=== PATIENT | male | born 1975 | race Caucasian/White ===

== ENCOUNTER 2016-07-09 23:15 | Emergency (ER) | payer OTHER ==
[2016-07-09] MEDS ORDERED: ASPIRIN 81 MG CHEW PO STA (23:28)
[2016-07-09] MEDS ORDERED: NITROGLYCERIN OINT 1 INCH/GM PACKET TOPICAL STA (23:28)
--- NOTE | 2016-07-09 23:30 | ED ---
General Adult HPI - General Chief complaint: Chest Pain Stated complaint: CHEST PAIN Time Seen by Provider: 07/09/16 23:18 Source: patient, RN notes reviewed Mode of arrival: EMS Limitations: no limitations - History of Present Illness Initial comments: Patient is a pleasant 40-year-old male presenting to the emergency department complaining of chest discomfort. Onset of symptoms was just prior to arrival while doing light exertion at work. Patient is sharp discomfort left chest. Mild associated dyspnea. No nausea or diaphoresis. Patient has had similar symptoms previously with negative cardiac evaluation. Patient sometimes does not take his medications. No history of cardiac disease however patient has hypertension, COPD from smoking, and hypercholesterolemia. No leg pain or swelling. No fevers. No radiation of pain. This time patient is near symptom- free. - Related Data Home Medications Medication Instructions Recorded Confirmed HYDROcodone/APAP 5-325MG [[place] 1 tab PO QID PRN 12/15/15 07/09/16 5-325] ALPRAZolam [Xanax] 0.25 mg PO BID PRN 07/09/16 07/09/16 ARIPiprazole [Abilify Maintena] 400 mg IM Q28D 07/09/16 07/09/16 ARIPiprazole [Abilify] 5 mg PO DAILY 07/09/16 07/09/16 Albuterol Inhaler [Ventolin Hfa 2 puff INHALATION RT-Q6H PRN 07/09/16 07/09/16 Inhaler] Atorvastatin [Lipitor] 20 mg PO HS 07/09/16 07/09/16 Beclomethasone Dipropionate [Qvar 1 puff INHALATION RT-BID 07/09/16 07/09/16 80 mcg] Escitalopram [Lexapro] 20 mg PO DAILY 07/09/16 07/09/16 Gabapentin 800 mg PO TID 07/09/16 07/09/16 OXcarbazepine [Trileptal] 300 mg PO BID 07/09/16 07/09/16 Propranolol [Inderal] 20 mg PO TID 07/09/16 07/09/16 Allergies Allergy/AdvReac Type Severity Reaction Status Date / Time venom-honey bee Allergy Swelling Verified 07/09/16 23:42 [bee venom (honey bee)] metals Allergy Rash/Hives Uncoded 07/09/16 23:21 Review of Systems ROS Statement: Those systems with pertinent positive or pertinent negative responses have been documented in the HPI. ROS Other: All systems not noted in ROS Statement are negative. Constitutional: Denies: fever Eyes: Denies: eye pain ENT: Denies: ear pain Respiratory: Reports: dyspnea. Denies: cough Cardiovascular: Reports: chest pain Endocrine: Denies: fatigue Gastrointestinal: Denies: abdominal pain Genitourinary: Denies: dysuria Musculoskeletal: Denies: back pain Skin: Denies: rash Neurological: Denies: weakness Past Medical History Past Medical History: Asthma, COPD, Hyperlipidemia, Hypertension, Skin Disorder Additional Past Medical History / Comment(s): Chronic low back pain, chronns chronic knee pain History of Any Multi-Drug Resistant Organisms: None Reported Past Surgical History: Orthopedic Surgery Additional Past Surgical History / Comment(s): Repair of the right knee ACL, left foot sx due to injury, right hand sx due to injury. Past Anesthesia/Blood Transfusion Reactions: No Reported Reaction Past Psychological History: Anxiety, Bipolar, Depression, Schizophrenia Additional Psychological History / Comment(s): Pt lives with a couple of friends. He uses a cane to ambulate due to his R knee and back pain. He states he thinks he may have ran out of one of his psych meds recently. He has had increased depression over the past couple weeks. He was admitted with over dose of acetaminophen pm. 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 He gets to appts either with friends driving or his insurance company. Smoking Status: Current every day smoker Past Alcohol Use History: Rare Additional Past Alcohol Use History / Comment(s): He started smoking at age 15. He has past hx of using heroin, cocaine and marijuana but has not used any drugs in [address] Kilgore for his mental health illnesses. Past Drug Use History: None Reported Additional Drug Use History / Comment(s): Patient states that he has used heroin , cocaine and marijuana in the past-none in 10 yrs. - Past Family History Mother Family Medical History: Asthma, Hypertension Additional Family Medical History / Comment(s): Mental health issues per pt. Father Family Medical History: CVA/TIA, Hypertension, Myocardial Infarction ([place]) Additional Family Medical History / Comment(s): Mental Health issues per patient. DDD General Exam Limitations: no limitations General appearance: alert, in no apparent distress Head exam: Present: atraumatic Eye exam: Present: normal appearance, PERRL ENT exam: Present: normal oropharynx Neck exam: Present: normal inspection Respiratory exam: Present: normal lung sounds bilaterally. Absent: chest wall tenderness Cardiovascular Exam: Present: regular rate, normal rhythm Expanded Peripheral pulses: 2+: Radial (R), Radial (L), Posterior Tibialis (R), Posterior Tibialis (L) GI/Abdominal exam: Present: soft. Absent: tenderness Extremities exam: Present: normal inspection. Absent: pedal edema, calf tenderness Back exam: Present: normal inspection Neurological exam: Present: alert Psychiatric exam: Present: normal affect, normal mood Skin exam: Absent: rash Course Vital Signs 07/09/16 07/09/16 07/09/16 23:19 23:27 23:41 Temperature 98.2 F Pulse Rate 72 74 Pulse Rate [ 75 Lpn Private Duty ] Respiratory 18 18 18 Rate Blood Pressure 131/66 105/57 O2 Sat by Pulse 99 Oximetry 07/10/16 00:20 Temperature Pulse Rate 68 Pulse Rate [ Lpn Private Duty ] Respiratory 18 Rate Blood Pressure 92/55 O2 Sat by Pulse 100 Oximetry EKG Findings - EKG Comments: EKG Findings:: Normal sinus rhythm 73. Normal intervals. Normal axis. Normal QRS. Normal ST-T. Medical Decision Making - Medical Decision Making Patient reexamined and symptom-free. Patient is advised admission for further evaluation and repeat lab tests. Patient is made aware that heart attack has not been completely ruled out. Patient is also made aware that he could be at risk for heart attack in the near future or other problems. Patient does demonstrate medical decision making. Patient refuses to stay and will leave AGAINST MEDICAL ADVICE. Patient is agreeable to follow-up with his primary care physician. He states he has an appointment on the for will try to follow-up sooner. - Lab Data Result diagrams: 07/09/16 23:25 07/09/16 23:25 Lab Results 07/09/16 07/09/16 07/09/16 Range/Units 23:25 23:25 23:25 WBC 6.9 (3.8-10.6) k/uL RBC 4.76 (4.30-5.90) m/uL Hgb 14.3 (13.0-17.5) gm/dL Hct 42.2 (39.0-53.0) % MCV 88.7 (80.0-100.0) fL MCH 30.0 (25.0-35.0) pg MCHC 33.9 (31.0-37.0) g/dL RDW 12.8 (11.5-15.5) % Plt Count 189 (150-450) k/uL Neutrophils % 49 % Lymphocytes % 39 % Monocytes % 4 % Eosinophils % 6 % Basophils % 1 % Neutrophils # 3.4 (1.3-7.7) k/uL Lymphocytes # 2.7 (1.0-4.8) k/uL Monocytes # 0.3 (0-1.0) k/uL Eosinophils # 0.4 (0-0.7) k/uL Basophils # 0.1 (0-0.2) k/uL PT (9.0-12.0) sec INR (<1.1) APTT (22.0-30.0) sec D-Dimer (<0.60) mg/L FEU Sodium 142 (137-145) mmol/L Potassium 3.7 (3.5-5.1) mmol/L Chloride 107 (98-107) mmol/L Carbon Dioxide 25 (22-30) mmol/L Anion Gap 10 mmol/L BUN 11 (9-20) mg/dL Creatinine 1.00 (0.66-1.25) mg/dL Est GFR (MDRD) Af Amer >60 (>60 ml/min/1.73 sqM) Est GFR (MDRD) Non-Af >60 (>60 ml/min/1.73 sqM) Glucose 79 (74-99) mg/dL Calcium 8.7 (8.4-10.2) mg/dL Magnesium 2.1 (1.6-2.3) mg/dL Total Bilirubin 0.3 (0.2-1.3) mg/dL AST 27 (17-59) U/L ALT 35 (21-72) U/L Alkaline Phosphatase 55 (38-126) U/L Total Creatine Kinase 103 (55-170) U/L CK-MB (CK-2) 0.6 (0.0-2.4) ng/mL CK-MB (CK-2) Rel Index 0.6 Troponin I <0.012 (0.000-0.034) ng/mL Total Protein 6.6 (6.3-8.2) g/dL Albumin 4.2 (3.5-5.0) g/dL 07/09/16 Range/Units 23:25 WBC (3.8-10.6) k/uL RBC (4.30-5.90) m/uL Hgb (13.0-17.5) gm/dL Hct (39.0-53.0) % MCV (80.0-100.0) fL MCH (25.0-35.0) pg MCHC (31.0-37.0) g/dL RDW (11.5-15.5) % Plt Count (150-450) k/uL Neutrophils % % Lymphocytes % % Monocytes % % Eosinophils % % Basophils % % Neutrophils # (1.3-7.7) k/uL Lymphocytes # (1.0-4.8) k/uL Monocytes # (0-1.0) k/uL Eosinophils # (0-0.7) k/uL Basophils # (0-0.2) k/uL PT 10.9 (9.0-12.0) sec INR 1.1 (<1.1) APTT 27.5 (22.0-30.0) sec D-Dimer 0.19 (<0.60) mg/L FEU Sodium (137-145) mmol/L Potassium (3.5-5.1) mmol/L Chloride (98-107) mmol/L Carbon Dioxide (22-30) mmol/L Anion Gap mmol/L BUN (9-20) mg/dL Creatinine (0.66-1.25) mg/dL Est GFR (MDRD) Af Amer (>60 ml/min/1.73 sqM) Est GFR (MDRD) Non-Af (>60 ml/min/1.73 sqM) Glucose (74-99) mg/dL Calcium (8.4-10.2) mg/dL Magnesium (1.6-2.3) mg/dL Total Bilirubin (0.2-1.3) mg/dL AST (17-59) U/L ALT (21-72) U/L Alkaline Phosphatase (38-126) U/L Total Creatine Kinase (55-170) U/L CK-MB (CK-2) (0.0-2.4) ng/mL CK-MB (CK-2) Rel Index Troponin I (0.000-0.034) ng/mL Total Protein (6.3-8.2) g/dL Albumin (3.5-5.0) g/dL - Radiology Data Radiology results: image reviewed (Chest x-ray shows no acute process) Disposition Clinical Impression: Chest pain Disposition: HOME SELF-CARE Condition: Stable Instructions: Chest Pain (ED) Additional Instructions: Please follow-up with your doctor in the next day or 2 for recheck. Aspirin daily. Return for increased pain, difficulty breathing, sweating or vomiting, worsening symptoms or any other concerns. You are leaving AGAINST MEDICAL ADVICE. Referrals: Nonstaff,Physician [Primary Care Provider] - 1-2 days Boaz Tavares MD [STAFF PHYSICIAN] - 1-2 days
[2016-07-09 23:39] LABS: Basophils # (A) 0.1 k/uL (0-0.2); Basophils % (A) 1 %; CH 30.8; CHCM 34.9; Eosinophils # (A) 0.4 k/uL (0-0.7); Eosinophils % (A) 6 %; HCT 42.2 % (39.0-53.0); HDW 2.64; HGB 14.3 gm/dL (13.0-17.5); Luc # (Auto) 0.09; Luc % (Auto) 1; Lymphocytes # (A) 2.7 k/uL (1.0-4.8); Lymphocytes % (A) 39 %; MCHC 33.9 g/dL (31.0-37.0); MCV 88.7 fL (80.0-100.0); Mean Platelet Volume 7.9; Monocytes # (A) 0.3 k/uL (0-1.0); Monocytes % (A) 4 %; Neutrophils # (A) 3.4 k/uL (1.3-7.7); Neutrophils % (A) 49 %; RBC 4.76 m/uL (4.30-5.90); RDW 12.8 % (11.5-15.5); WBC 6.9 k/uL (3.8-10.6); WBC (Perox) 7.29
[2016-07-09 23:48] LABS: ALT 35 U/L (21-72); AST 27 U/L (17-59); Alkaline Phosphatase 55 U/L (38-126); Anion Gap 10 mmol/L; Blood Urea Nitrogen 11 mg/dL (9-20); Calcium 8.7 mg/dL (8.4-10.2); Carbon Dioxide 25 mmol/L (22-30); Chloride 107 mmol/L (98-107); Glucose 79 mg/dL (74-99); Magnesium 2.1 mg/dL (1.6-2.3); Non-African American GFR(MDRD) >60 (>60 ml/min/1.73 sqM); Potassium 3.7 mmol/L (3.5-5.1); Sodium 142 mmol/L (137-145); Total Bilirubin 0.3 mg/dL (0.2-1.3); Total Protein 6.6 g/dL (6.3-8.2)
--- NOTE | 2016-07-09 23:54 | XR ---
EXAMINATION TYPE: XR chest 2V DATE OF EXAM: 07/09/2016 11:50 PM COMPARISON: 05/12/2016 HISTORY: Chest pain TECHNIQUE: Frontal and lateral views of the chest are obtained. FINDINGS: Heart and mediastinum are normal. Lungs are clear. Diaphragm is normal. Bony thorax is nor mal. There are chest leads. IMPRESSION: Normal chest. No change.
[2016-07-10 00:14] LABS: Creatine Kinase 103 U/L (55-170)
[2016-07-10 00:27] LABS: Creatine Kinase MB 0.6 ng/mL (0.0-2.4); Troponin I <0.012 ng/mL (0.000-0.034)
[2016-07-10 00:29] LABS: Partial Thromboplastin Time 27.5 sec (22.0-30.0); Prothrombin Time 10.9 sec (9.0-12.0)
[2016-07-10 00:30] LABS: INR 1.1 (<1.1)
[2016-07-10 00:49] VITALS: BP 101/60; PULSE 76; RESP 16; TEMP 98
== END 2016-07-10 00:49 | disposition home or self-care (01) ==
LOC: EC 23:15
DX: R07.9 Chest pain, unspecified (principal); J44.9 Chronic obstructive pulmonary disease, unspecified; Z53.21 Procedure and treatment not carried out due to patient leaving prior to being seen by health care provider; I10 Essential (primary) hypertension; E78.00 Pure hypercholesterolemia, unspecified; Z79.899 Other long term (current) drug therapy; J45.909 Unspecified asthma, uncomplicated; F41.9 Anxiety disorder, unspecified; F32.9 Major depressive disorder, single episode, unspecified; F31.9 Bipolar disorder, unspecified; F20.9 Schizophrenia, unspecified; M54.5 Low back pain; G89.29 Other chronic pain; F17.200 Nicotine dependence, unspecified, uncomplicated; Z79.51 Long term (current) use of inhaled steroids
CPT/HCPCS: 36415; 71020; 80053; 82550; 82553; 83735; 84484; 85025; 85379; 85610; 85730; 93005; 99285

== ENCOUNTER 2016-10-21 19:16 | Emergency (ER) | payer OTHER ==
[2016-10-21 19:25] VITALS: RESP 16; TEMP 99
--- NOTE | 2016-10-21 20:03 | ED ---
Chest Pain HPI - General Chief Complaint: Chest Pain Stated Complaint: chest pain Time Seen by Provider: 10/21/16 19:19 Source: patient, EMS Mode of arrival: EMS - History of Present Illness Initial Comments: This is a 41-year-old male who presents emergency department for intermittent chest pain for the last couple of days. He's describes it as a tightness in his chest. It seems to be random and not related to exertion. He does have associated lightheadedness however no diaphoresis or nausea or vomiting. He does admit to some associated shortness of breath. No radiation of the pain. No cough or fever. No abdominal pain. He does smoke and takes medication for blood pressure and high cholesterol. He's had these symptoms previously approximate 6 months ago and had a full workup and including cardiac MRI and stress testing. This was completely unremarkable. He does state these been under a little bit more stress recently however is unsure if that is causing his symptoms. He does not have any chest discomfort currently. No other complaints. - Related Data Home Medications Medication Instructions Recorded Confirmed HYDROcodone/APAP 5-325MG [[place] 1 tab PO QID PRN 12/15/15 10/21/16 5-325] Albuterol Inhaler [Ventolin Hfa 2 puff INHALATION RT-Q6H PRN 07/09/16 10/21/16 Inhaler] Atorvastatin [Lipitor] 20 mg PO HS 07/09/16 10/21/16 Gabapentin 800 mg PO TID 07/09/16 10/21/16 Propranolol [Inderal] 20 mg PO TID 07/09/16 10/21/16 Allergies Allergy/AdvReac Type Severity Reaction Status Date / Time venom-honey bee Allergy Swelling Verified 10/21/16 19:55 [bee venom (honey bee)] metals Allergy Rash/Hives Uncoded 07/09/16 23:21 Review of Systems ROS Statement: Those systems with pertinent positive or pertinent negative responses have been documented in the HPI. ROS Other: All systems not noted in ROS Statement are negative. EKG Findings - EKG Comments: EKG Findings:: EKG showing a sinus rhythm with rate of 79. No abnormal ST segment changes or T-wave inversions. QTC is 418. Other intervals are normal. No ectopy. Past Medical History Past Medical History: Asthma, COPD, Hyperlipidemia, Hypertension, Skin Disorder Additional Past Medical History / Comment(s): Chronic low back pain, chronns chronic knee pain History of Any Multi-Drug Resistant Organisms: None Reported Past Surgical History: Orthopedic Surgery Additional Past Surgical History / Comment(s): Repair of the right knee ACL, left foot sx due to injury, right hand sx due to injury. Past Anesthesia/Blood Transfusion Reactions: No Reported Reaction Past Psychological History: Anxiety, Bipolar, Depression, Schizophrenia Additional Psychological History / Comment(s): Pt lives with a couple of friends. He uses a cane to ambulate due to his R knee and back pain. He states he thinks he may have ran out of one of his psych meds recently. He has had increased depression over the past couple weeks. He was admitted with over dose of acetaminophen pm. 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 He gets to appts either with friends driving or his insurance company. Smoking Status: Current every day smoker Past Alcohol Use History: Rare Additional Past Alcohol Use History / Comment(s): He started smoking at age 15. He has past hx of using heroin, cocaine and marijuana but has not used any drugs in [address] Kilgore for his mental health illnesses. Past Drug Use History: None Reported Additional Drug Use History / Comment(s): Patient states that he has used heroin , cocaine and marijuana in the past-none in 10 yrs. - Past Family History Mother Family Medical History: Asthma, Hypertension Additional Family Medical History / Comment(s): Mental health issues per pt. Father Family Medical History: CVA/TIA, Hypertension, Myocardial Infarction ([place]) Additional Family Medical History / Comment(s): Mental Health issues per patient. DDD General Exam - General Exam Comments Initial Comments: Constitutional: Awake alert Appears comfortable Head: Normocephalic atraumatic Eyes: no conjunctival injection No scleral icterus EOMI Neck: No JVD Supple Heart: Regular rate rhythm normal S1-S2 no murmurs Lungs: Clear to auscultation bilaterally No wheezing No rales Abdomen: Soft nondistended nontender Extremities: Non edematous DP pulses intact Radial pulses intact Neuro: A&Ox3 No focal neurologic deficits Psych: Appropriate mood and affect Course Vital Signs 10/21/16 10/21/16 10/21/16 19:22 21:03 21:29 Temperature 99 F Pulse Rate 71 64 72 Respiratory 16 16 16 Rate Blood Pressure 139/73 126/69 125/65 O2 Sat by Pulse 98 98 98 Oximetry Chest Pain MDM - MDM This is a 41-year-old male came in for chest pain that was atypical in nature. The patient had no chest pain while in the emergency department. EKG was unremarkable and troponin was negative. Patient has had significant GI and anxiety issues in the past. I feel that this is more likely than ACS. He's had a completely normal workup within the last 6 months. I told to follow-up with his primary doctor. He may need GI evaluation. Told to deal with stress at home with his normal troponin mechanisms. He can return if he has worsening symptoms. All questions were answered. Disposition Clinical Impression: Chest pain Disposition: HOME SELF-CARE Condition: Stable Instructions: Chest Pain (ED) Referrals: Nonstaff,Physician [Primary Care Provider] - 1-2 days
[2016-10-21 20:05] LABS: Basophils # (A) 0.1 k/uL (0-0.2); Basophils % (A) 1 %; CHCM 34.7; Eosinophils # (A) 0.2 k/uL (0-0.7); Eosinophils % (A) 2 %; HCT 43.4 % (39.0-53.0); HDW 2.53; HGB 14.7 gm/dL (13.0-17.5); Luc # (Auto) 0.15; Luc % (Auto) 2; Lymphocytes # (A) 2.2 k/uL (1.0-4.8); Lymphocytes % (A) 23 %; MCH 30.5 pg (25.0-35.0); MCV 89.8 fL (80.0-100.0); Mean Platelet Volume 7.4; Monocytes # (A) 0.5 k/uL (0-1.0); Monocytes % (A) 5 %; Neutrophils # (A) 6.5 k/uL (1.3-7.7); Neutrophils % (A) 68 %; RBC 4.83 m/uL (4.30-5.90); RDW 12.8 % (11.5-15.5); WBC 9.6 k/uL (3.8-10.6); WBC (Perox) 9.33
[2016-10-21 20:13] LABS: INR 1.1 (<1.1); Partial Thromboplastin Time 25.4 sec (22.0-30.0); Prothrombin Time 10.7 sec (9.0-12.0)
[2016-10-21 20:25] LABS: ALT 22 U/L (21-72); AST 20 U/L (17-59); Alkaline Phosphatase 52 U/L (38-126); Anion Gap 7 mmol/L; Blood Urea Nitrogen 6 mg/dL (9-20); Calcium 8.8 mg/dL (8.4-10.2); Carbon Dioxide 26 mmol/L (22-30); Chloride 109 mmol/L (98-107); Glucose 87 mg/dL (74-99); Magnesium 1.9 mg/dL (1.6-2.3); Non-African American GFR(MDRD) >60 (>60 ml/min/1.73 sqM); Potassium 3.8 mmol/L (3.5-5.1); Sodium 142 mmol/L (137-145); Total Bilirubin 0.4 mg/dL (0.2-1.3); Total Protein 6.2 g/dL (6.3-8.2)
[2016-10-21 20:37] LABS: Creatine Kinase MB 0.6 ng/mL (0.0-2.4); Troponin I <0.012 ng/mL (0.000-0.034)
--- NOTE | 2016-10-21 21:03 | XR ---
EXAMINATION TYPE: XR chest 2V DATE OF EXAM: 10/21/2016 8:15 PM COMPARISON: 07/09/2016 INDICATION: Pain TECHNIQUE: Single frontal view of the chest is obtained. FINDINGS: The heart size is normal. The pulmonary vasculature is normal. The lungs are clear. EKG leads overlie the chest. IMPRESSION: 1. No acute pulmonary process.
[2016-10-21 21:30] VITALS: BP 125/65; PULSE 72
== END 2016-10-21 21:30 | disposition home or self-care (01) ==
LOC: EC 19:16
DX: R07.89 Other chest pain (principal); R42 Dizziness and giddiness; R06.02 Shortness of breath; I10 Essential (primary) hypertension; E78.5 Hyperlipidemia, unspecified; F17.200 Nicotine dependence, unspecified, uncomplicated; Z79.899 Other long term (current) drug therapy; Z91.030 Bee allergy status; Z91.048 Other nonmedicinal substance allergy status; Z82.49 Family history of ischemic heart disease and other diseases of the circulatory system
CPT/HCPCS: 36415; 71020; 80053; 82553; 83690; 83735; 84484; 85025; 85610; 85730; 93005; 99285

== ENCOUNTER 2017-02-22 07:40 | Inpatient (IN) | payer OTHER ==
--- NOTE | 2017-02-22 08:52 | ED ---
General Adult HPI - General Chief complaint: Psychiatric Symptoms Stated complaint: Mental Health Time Seen by Provider: 02/22/17 08:16 Source: EMS, RN notes reviewed Mode of arrival: EMS Limitations: no limitations - History of Present Illness Initial comments: Patient 41-year-old male who presents emergency room today with a chief complaint of possible suicidal or homicidal ideation. He states she's having thoughts of hurting himself. He states is given thoughts to overdosing on his medications. She is not been taking his medication over the last 2 months up and seen a therapist or counselor. Patient also admits that he's had thoughts of hurting others but no one specifically. Patient denies any other physical complaints. Patient denies any recent fever, chills, shortness of breath, chest pain, back pain, abdominal pain, nausea or vomiting, numbness or tingling, dysuria or hematuria, constipation or diarrhea, headaches or visual changes, or any other complaints. - Related Data Home Medications Medication Instructions Recorded Confirmed HYDROcodone/APAP 5-325MG [[place] 1 tab PO QID PRN 12/15/15 02/22/17 5-325] Albuterol Inhaler [Ventolin Hfa 2 puff INHALATION RT-Q6H PRN 07/09/16 02/22/17 Inhaler] Atorvastatin [Lipitor] 20 mg PO HS 07/09/16 02/22/17 Gabapentin 800 mg PO TID 07/09/16 02/22/17 Propranolol [Inderal] 20 mg PO TID 07/09/16 02/22/17 Allergies Allergy/AdvReac Type Severity Reaction Status Date / Time venom-honey bee Allergy Swelling Verified 02/22/17 09:34 [bee venom (honey bee)] metals Allergy Rash/Hives Uncoded 02/22/17 07:45 Review of Systems ROS Statement: Those systems with pertinent positive or pertinent negative responses have been documented in the HPI. ROS Other: All systems not noted in ROS Statement are negative. Past Medical History Past Medical History: Asthma, COPD, Hyperlipidemia, Hypertension, Skin Disorder Additional Past Medical History / Comment(s): Chronic low back pain, chronns chronic knee pain History of Any Multi-Drug Resistant Organisms: None Reported Past Surgical History: Orthopedic Surgery Additional Past Surgical History / Comment(s): Repair of the right knee ACL, left foot sx due to injury, right hand sx due to injury. Past Anesthesia/Blood Transfusion Reactions: No Reported Reaction Past Psychological History: Anxiety, Bipolar, Depression, Schizophrenia Smoking Status: Current every day smoker Past Alcohol Use History: Rare Past Drug Use History: None Reported - Past Family History Mother Family Medical History: Asthma, Hypertension Additional Family Medical History / Comment(s): Mental health issues per pt. Father Family Medical History: CVA/TIA, Hypertension, Myocardial Infarction ([place]) Additional Family Medical History / Comment(s): Mental Health issues per patient. DDD General Exam - General Exam Comments Initial Comments: General: The patient is awake and alert, in no distress, and does not appear acutely ill. Eye: Pupils are equal, round and reactive to light, extra-ocular movements are intact. No nystagmus. There is normal conjunctiva bilaterally. No signs of icterus. Ears, nose, mouth and throat: There are moist mucous membranes and no oral lesions. Neck: The neck is supple, there is no tenderness or JVD. Cardiovascular: There is a regular rate and rhythm. No murmur, rub or gallop is appreciated. Respiratory: Lungs are clear to auscultation, respirations are non-labored, breath sounds are equal. No wheezes, stridor, rales, or rhonchi. Musculoskeletal: Normal ROM, no tenderness. Strength 5/5. Sensation intact. Pulses equal bilaterally 2+. Neurological: A&O x 3. CN II-XII intact, There are no obvious motor or sensory deficits. Coordination appears grossly intact. Speech is normal. Skin: Skin is warm and dry and no rashes or lesions are noted. Psychiatric: Cooperative, appropriate mood & affect, normal judgment. Limitations: no limitations Course Vital Signs 02/22/17 07:45 Temperature 98.6 F Pulse Rate 69 Respiratory 20 Rate Blood Pressure 131/69 O2 Sat by Pulse 99 Oximetry Medical Decision Making - Medical Decision Making Patient has been seen here in emergency room by psych services and recommended admission. Patient is willing to sign himself in. Disposition Clinical Impression: Suicidal ideation Disposition: TRANSFER TO PSYCH HOSP/UNIT Condition: Stable Referrals: None,Stated [Primary Care Provider] - 1-2 days Time of Disposition: 10:38
[2017-02-22] MEDS ORDERED: LORazepam 1 MG TAB PO PRN (10:51)
[2017-02-22] MEDS ORDERED: ZIPRASIDONE 20 MG VIAL IM PRN (10:51)
[2017-02-22] MEDS ORDERED: ACETAMINOPHEN TAB 325 MG TAB PO PRN (10:51)
[2017-02-22] MEDS ORDERED: MAG HYDROX/AL HYDROX/SIMETH 30 ML CUP PO PRN (10:51)
[2017-02-22] MEDS ORDERED: MAGNESIUM HYDROXIDE 2,400 MG/10 ML CUP PO PRN (10:51)
[2017-02-22] MEDS ORDERED: NICOTINE 7MG/24HR PATCH TRANSDERM SCH (11:00)
[2017-02-22] MEDS: NICOTINE 14MG/24HR PATCH TRANSDERM SCH (11:49)
[2017-02-22 11:51] VITALS: BMI 28.3
--- NOTE | 2017-02-22 19:31 | P.MDCNMH ---
History of Present Illness H&P Date: 02/22/17 Chief Complaint: Suicidal ideation 41-year-old male with past medical history of hypertension and hyperlipidemia currently not on any medication at does not have insurance all [facility] established outpatient follow-up Patient presented due to suicidal ideation with plans on overdosing he's been having thoughts of hurting himself and homicidal ideation with no specific targets he reported that he was discussed like to hurt people. Otherwise he denies any chest pain trouble breathing headache changes in his vision or hearing denies any abdominal pain nausea or vomiting diarrhea or bleeding. Review of Systems Constitutional: Patient reports no fever, no chills, no night sweating, no significant weight changes Eyes: Patient reports no visual changes, no eye pain ENT: Patient reports no ear pain, no rhinorrhea, no sore throat Cardiovascular: Patient reports no chest pain, no exertional dyspnea, no peripheral leg edema, no orthopnea, no paroxysmal nocturnal dyspnea Respiratory:Patient reports no cough, no wheezing, no shortness of breath Gastrointestinal: Patient reports no diarrhea, no constipation, no nausea no vomiting, no abdominal pain Genitourinary: Patient reports no dysuria, no hematuria, no changes in urinary habits, no genital lesions Musculoskeletal: Patient reports no muscle pain, no joint pain Psychiatric: Patient reports suicidal ideation, depressed mood and helpless, anxiety Endocrine: Patient reports no heat intolerance, no cold intolerance, no excessive thirst, no polyuria Neurological: Patient reports no focal neurologic deficits, no weakness, no numbness, no tingling Hem/Lymphatic: Patient reports no bleeding tendency, no bruising, no swollen lymph glands Allergic/Immun: Patient reports no recent allergic reactions Skin: Patient reports no rashes, no pruritis, no ulcers Past Medical History Past Medical History: Asthma, COPD, Hyperlipidemia, Hypertension, Skin Disorder Additional Past Medical History / Comment(s): Chronic low back pain, chronns chronic knee pain History of Any Multi-Drug Resistant Organisms: None Reported Past Surgical History: Orthopedic Surgery Additional Past Surgical History / Comment(s): Repair of the right knee ACL, left foot sx due to injury, right hand sx due to injury. Past Anesthesia/Blood Transfusion Reactions: No Reported Reaction Past Psychological History: Anxiety, Bipolar, Depression, Schizophrenia Additional Psychological History / Comment(s): Pt lives with a couple of friends. He uses a cane to ambulate due to his R knee and back pain. He states he thinks he may have ran out of one of his psych meds recently. He has had increased depression over the past couple weeks. He was admitted with over dose of acetaminophen pm. 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 He gets to appts either with friends driving or his insurance company. Smoking Status: Current every day smoker Past Alcohol Use History: Rare Additional Past Alcohol Use History / Comment(s): He started smoking at age 15. He has past hx of using heroin, cocaine and marijuana but has not used any drugs in [address] Kilgore for his mental health illnesses. Past Drug Use History: None Reported Additional Drug Use History / Comment(s): Patient states that he has used heroin , cocaine and marijuana in the past-none in 10 yrs. - Past Family History Mother Family Medical History: Asthma, Hypertension Additional Family Medical History / Comment(s): Mental health issues per pt. Father Family Medical History: CVA/TIA, Hypertension, Myocardial Infarction ([place]) Additional Family Medical History / Comment(s): Mental Health issues per patient. DDD Medications and Allergies Home Medications and Allergies Comment(s): Reviewed patient reports taking no medications at home as he doesn't have insurance Home Medications Medication Instructions Recorded Confirmed Type HYDROcodone/APAP 5-325MG [[place] 1 tab PO QID PRN 12/15/15 02/22/17 History 5-325] Albuterol Inhaler [Ventolin Hfa 2 puff INHALATION RT-Q6H PRN 07/09/16 02/22/17 History Inhaler] Atorvastatin [Lipitor] 20 mg PO HS 07/09/16 02/22/17 History Gabapentin 800 mg PO TID 07/09/16 02/22/17 History Propranolol [Inderal] 20 mg PO TID 07/09/16 02/22/17 History Allergies Allergy/AdvReac Type Severity Reaction Status Date / Time venom-honey bee Allergy Swelling Verified 02/22/17 09:34 [bee venom (honey bee)] metals Allergy Rash/Hives Uncoded 02/22/17 07:45 Physical Exam Vitals: Vital Signs Temp Pulse Pulse Resp BP BP Pulse Ox 02/22/17 11:39 97.8 F 63 16 113/80 02/22/17 07:45 98.6 F 69 20 131/69 99 Intake and Output 08/28/17 08/28/17 08/28/17 06:59 14:59 22:59 Other: Weight 97.4 kg Patient Weight 02/23/17 06:59 Weight 97.4 kg Constitutional: No acute distress, conversant Eyes: Anicteric sclerae, moist conjunctiva, no lid-lag Pupils equal round reactive to light ENMT: NC/AT Oropharynx clear, no erythema, exudates Neck: Supple, FROM, no masses, or JVD No carotid bruits No thyromegaly Lungs: Clear to auscultation Clear to percussion Normal respiratory effort, no accessory muscle use Cardiovascular: Heart regular in rate and rhythm, No murmurs, gallops, or rubs No peripheral edema Abdominal: Soft Nontender, no guarding, rebound or rigidity Abdomen moving with respiration Normoactive bowel sounds No hepatomegaly, No splenomegaly No palpable mass No abdominal wall hernia noted Skin: Normal temperature, tone, texture, turgor No induration No subcutaneous nodules No rash, lesions No ulcers Extremities: No digital cyanosis No clubbing Pedal pulses intact and symmetrical Radial pulses intact and symmetrical No calf tenderness Psychiatric: Alert and oriented to person, place and time Depressed affect Poor judgement Neuro Muscles Strength 5/5 in all 4 extremities Sensation to light touch grossly present throughout Cranial nerves II-XII grossly intact No focal sensory deficits Lymphatics: no palpable cervical or supraclavicular , or inguinal lymph nodes Cranial Nerve Examination - Cranial Nerves Cranial Nerve II- Optic: Intact Cranial Nerve III- Oculomotor: Intact Cranial Nerve IV- Trochlear: Intact Cranial Nerve V- Trigeminal: Intact Cranial Nerve - Abducens: Intact Cranial Nerve VII- Facial: Intact Cranial Nerve VIII- Auditory: Intact Cranial Nerve IX- Glossopharyngeal: Intact Cranial Nerve X- Vagus: Intact Cranial Nerve XI- Accessory: Intact Cranial Nerve XII- Hypoglossal: Intact Assessment and Plan (1) COPD (chronic obstructive pulmonary disease) Narrative/Plan: Currently stable Continue with DuoNeb's when necessary Patient counseled to quit smoking and avoid smoke exposure Status: Chronic (2) Suicidal ideation Narrative/Plan: Management per psych suicide precautions Status: Acute (3) Agitation Status: Acute (4) Ne (monopolar) single episode or unspecified Status: Acute Plan: Tobacco smoking Patient counseled to quit smoking, dictating replacement therapy offered history of hypertension , patient off medications, currently blood pressure controlled will continue to monitor Thank you for allowing me the opportunity of participating in the care the care of this patient we will follow-up as needed please don't hesitate to call Time with Patient: Greater than 30
[2017-02-22] MEDS ORDERED: IPRATROPIUM-ALBUTEROL 3 ML NEB INHALATION PRN (19:43)
[2017-02-23] MEDS: NICOTINE 14MG/24HR PATCH TRANSDERM SCH (08:38)
[2017-02-23 09:17] LABS: Basophils # (A) 0.1 k/uL (0-0.2); Basophils % (A) 1 %; CH 30.1; CHCM 34.1; Eosinophils # (A) 0.2 k/uL (0-0.7); Eosinophils % (A) 3 %; HCT 52.2 % (39.0-53.0); HDW 2.51; HGB 18.1 gm/dL (13.0-17.5); Luc # (Auto) 0.11; Luc % (Auto) 2; Lymphocytes # (A) 1.7 k/uL (1.0-4.8); Lymphocytes % (A) 24 %; MCH 30.7 pg (25.0-35.0); MCHC 34.7 g/dL (31.0-37.0); MCV 88.5 fL (80.0-100.0); Mean Platelet Volume 7.6; Monocytes # (A) 0.3 k/uL (0-1.0); Monocytes % (A) 4 %; Neutrophils # (A) 4.7 k/uL (1.3-7.7); Neutrophils % (A) 67 %; RDW 12.5 % (11.5-15.5); WBC 7.1 k/uL (3.8-10.6); WBC (Perox) 7.12
[2017-02-23 09:48] LABS: ALT 23 U/L (21-72); AST 22 U/L (17-59); Alkaline Phosphatase 64 U/L (38-126); Anion Gap 8 mmol/L; Blood Urea Nitrogen 13 mg/dL (9-20); Calcium 9.6 mg/dL (8.4-10.2); Carbon Dioxide 32 mmol/L (22-30); Chloride 101 mmol/L (98-107); Glucose 124 mg/dL (74-99); Non-African American GFR(MDRD) >60 (>60 ml/min/1.73 sqM); Potassium 5.2 mmol/L (3.5-5.1); Sodium 141 mmol/L (137-145); Total Bilirubin 0.5 mg/dL (0.2-1.3); Total Protein 7.2 g/dL (6.3-8.2)
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
[2017-02-23] MEDS: ARIPiprazole 10 MG TAB PO SCH (10:37)
[2017-02-23] MEDS: ESCITALOPRAM 10 MG TAB PO SCH (10:37)
[2017-02-24] MEDS: ESCITALOPRAM 10 MG TAB PO SCH (08:28)
[2017-02-24] MEDS: ARIPiprazole 10 MG TAB PO SCH (08:28)
[2017-02-24] MEDS: NICOTINE 14MG/24HR PATCH TRANSDERM SCH (08:28)
[2017-02-25 01:41] VITALS: RESP 16
[2017-02-25] MEDS ORDERED: IBUPROFEN 600 MG TAB PO PRN (02:08)
[2017-02-25] MEDS: NICOTINE 14MG/24HR PATCH TRANSDERM SCH (09:07)
[2017-02-25] MEDS: ARIPiprazole 10 MG TAB PO SCH (09:08)
[2017-02-25] MEDS: ESCITALOPRAM 10 MG TAB PO SCH (09:08)
[2017-02-25] MEDS ORDERED: ARIPiprazole 400 MG VIAL IM ONE (12:02)
--- NOTE | 2017-02-25 16:15 | PN ---
PROGRESS NOTE Date of Service: DATE OF SERVICE: 02/24/2017. CHIEF COMPLAINT: The patient was admitted due to depression with suicidal thinking, He was having increased problems with psychotic symptoms. He had high anxiety. Poor sleep. He has been having auditory hallucinations. INTERVAL HISTORY: The patient has been doing fairly well. He had quiet evening last night. He slept well today. He has been up and about. He has been attending groups. He says his mood is improved and he has a better outlook. He feels that things that was discussed in group were helpful for him to get a better perspective on things. He feels that he has a better outlook. He feels his medications have been helpful. He has not had change in his general health. He tolerates his psychotropic medications. MENTAL STATUS: The patient sat with good eye contact. Psychomotor activity was a little slow. Speech was monotone. He answered questions with direct responses. His thoughts were clear. His affect was on the quiet side. His mood was somewhat down though not clearly depressed. He did not appear to be distressed. ASSESSMENT: I will continued current diagnosis and treatment plan. The patient is showing improvement. We talked about the option of his starting Abilify Maintena which he had been on though has not received an injection for some period of time. He was not clear on the specific date. I discussed with the patient that since he has shown some progress, I will continue to adjust his oral Abilify 10 mg a day along with Lexapro 10 mg a day. We can consider initiating Abilify Maintena in the next day or 2. We will continue to focus upon stabilization and discharge planning. MMODL / IJN: [id number] /
[2017-02-26 06:44] VITALS: BP 115/57; PULSE 63; TEMP 97.6
[2017-02-26] MEDS: ESCITALOPRAM 10 MG TAB PO SCH (08:27)
[2017-02-26] MEDS: ARIPiprazole 10 MG TAB PO SCH (08:27)
[2017-02-26] MEDS: NICOTINE 14MG/24HR PATCH TRANSDERM SCH (08:27)
--- NOTE | 2017-02-26 09:24 | P.DS ---
Providers Date of admission: 02/22/17 10:45 Expected date of discharge: 02/26/17 Attending physician: Abdias Case Consults: 02/22/17 10:51 Consult Physician Routine Consulting Provider: Rangel Physician Consult Reason/Comments: H and P and medical management Do you want consulting provider notified?: Yes Primary care physician: Stated None - Discharge Diagnosis(es) (1) Bipolar 1 disorder, depressed Current Visit: Yes Status: Acute Priority: High (2) Opiate dependence Current Visit: Yes Status: Acute Priority: Medium (3) Alcohol use disorder Current Visit: Yes Status: Acute Priority: Medium Hospital Course: Brief summary of admission note: This patient is a 41-year-old male who was admitted to the mental health unit through the emergency room for symptoms depression with suicidal ideation with psychosis. The patient reported he had been out of treatment for at least 2 months and off medications for that period of time. He was experiencing low energy tearfulness excessive sleep and thoughts of overdosing as a means of killing himself. Additionally he endorsed auditory hallucinations and paranoid thoughts. He endorsed a history of manic episodes, previously being diagnosed with bipolar disorder. For full detail please refer to my psychiatric evaluation. Summary of hospital course: The patient was admitted to the mental health unit voluntarily. We reviewed his presenting symptoms and medication options. He was restarted on Lexapro and Abilify. He reported a progressive improvement of symptoms while here. He was given an injection of Abilify maintena 400 mg on . The patient has noted a resolution of suicidal ideation and he reports his hallucinations are much improved. He is endorsing no command auditory hallucinations. He states he has been in contact with family via phone. He plans to return to his residence where he rents a room. He has been cooperative throughout the stay. He was seen by internal medicine for a routine history and physical exam. Mental status exam: The patient is alert he seated calmly he's pleasant and cooperative on approach. Eye contact is good speech is fluent spontaneous nonpressured. He reports his mood is "much better" he denies having any suicidal or homicidal ideation intent or plan. He is endorsing some infrequent auditory hallucinations but states they are much improved and are not commanding. He is reporting no paranoid thoughts. In observing him there is no overt evidence of psychosis. Insight and judgment have improved. He is oriented to person place and date. Affect is euthymic. He demonstrates no verbal or physical aggressiveness. He demonstrates no abnormal involuntary movements. Impressions 1. Bipolar 1 disorder most recent depressed with psychosis, opiate use disorder , alcohol use disorder, marijuana use disorder, rule out cocaine use disorder, anxiety unspecified, rule out cognitive sequela secondary to traumatic brain injury 2. COPD, Crohn's, reported history of head injury Plan: The patient will be discharged mental health unit today to return to his residence. Social work will arrange his outpatient mental health follow-up. He is not interested in participating in inpatient chemical dependency treatment at this time but is willing to address these issues as an outpatient. He will continue on Lexapro 10 mg daily Abilify 10 mg daily for 2 weeks. He received an injection for Abilify maintena 400 mg on 02/25/2017 and is due for another in 1 month. There is no imminent safety risk he is appropriate for transition to outpatient care. Patient Condition at Discharge: Stable Plan - Discharge Summary New Discharge Prescriptions: New ARIPiprazole [Abilify] 10 mg PO DAILY #13 tab ARIPiprazole IM [Abilify Maintena] 400 mg IM QMONTH #1 vial Escitalopram [Lexapro] 10 mg PO DAILY #30 tab Continue Atorvastatin [Lipitor] 20 mg PO HS Albuterol Inhaler [Ventolin Hfa Inhaler] 2 puff INHALATION RT-Q6H PRN PRN Reason: Shortness Of Breath Discontinued HYDROcodone/APAP 5-325MG [[place] 5-325] 1 tab PO QID PRN PRN Reason: Pain Propranolol [Inderal] 20 mg PO TID Gabapentin 800 mg PO TID Discharge Medication List Albuterol Inhaler [Ventolin Hfa Inhaler] 2 puff INHALATION RT-Q6H PRN 07/09/16 [ History] Atorvastatin [Lipitor] 20 mg PO HS 07/09/16 [History] ARIPiprazole IM [Abilify Maintena] 400 mg IM QMONTH #1 vial 02/26/17 [Rx] ARIPiprazole [Abilify] 10 mg PO DAILY #13 tab 02/26/17 [Rx] Escitalopram [Lexapro] 10 mg PO DAILY #30 tab 02/26/17 [Rx] Follow up Appointment(s)/Referral(s): None,Stated [Primary Care Provider] - 1-2 days
--- NOTE | 2017-02-26 11:55 | PN ---
PROGRESS NOTE DATE OF SERVICE: 02/24/2017. CHIEF COMPLAINT: The patient was admitted due to depression with suicidal thinking. He was having increasing problems with psychotic symptoms. He had high anxiety and poor sleep and was having auditory hallucinations. INTERVAL HISTORY: The patient has been doing fairly well. He said he is much improved from admission and feels positive about his situation. He slept well last night. He has been up and about today. He comes out in the day area quite a bit of the time. He interacts with others. He has been attending most of the groups and seems to find them positive for him. He is agreement with initiating Abilify Maintena which he feels has been an important medication for him. He has not had change his general health. He tolerates his psychotropic medications. MENTAL STATUS: The patient gave good eye contact. Psychomotor activity and speech are normal. His thoughts were clear, he was spontaneous and interactive. his affect was in the reasonable range. His mood was even. he did appear to be distressed. ASSESSMENT: Continue the current diagnosis and treatment plan. At this point, I will initiate Abilify Maintena 400 mg IM which he will recd today. He has shown good progress. I would aim to discharge the patient tomorrow and we will set up the appropriate followup. MMODL / IJN: [id number] / FAY
== END 2017-02-26 11:51 | disposition home or self-care (01) | DRG 885 ==
LOC: EC 07:40 → 3MHU 10:45
PROVIDERS: ADMIT Psychiatry & Neurology Psychiatry; ATTEND Psychiatry & Neurology Psychiatry
DX: F31.5 Bipolar disorder, current episode depressed, severe, with psychotic features (principal); R45.851 Suicidal ideations; F11.20 Opioid dependence, uncomplicated; K50.90 Crohn's disease, unspecified, without complications; I10 Essential (primary) hypertension; E78.5 Hyperlipidemia, unspecified; F17.200 Nicotine dependence, unspecified, uncomplicated; J44.9 Chronic obstructive pulmonary disease, unspecified; Z79.899 Other long term (current) drug therapy; Z82.49 Family history of ischemic heart disease and other diseases of the circulatory system; Z82.5 Family history of asthma and other chronic lower respiratory diseases; Z87.820 Personal history of traumatic brain injury; Z91.5 Personal history of self-harm
CPT/HCPCS: 80053; 80306; 82075; 84443; 85025; 94640; 99285